=== PATIENT | male | born 1955 | race Caucasian/White ===

== ENCOUNTER 2019-07-01 13:49 | Inpatient (IN) | payer MEDICARE ==
[2019-07-01] MEDS ORDERED: Diltiazem 125 MG/25 ML ONE (14:00)
[2019-07-01 14:17] LABS: #Eosinphils 0.1 thou/uL (0.0-0.7); #Lymphocytes 2.3 thou/uL (1.20-3.40); #Monocytes 0.7 thou/uL (0.11-0.59); #Neutrophils 6.9 thou/uL (1.40-6.50); %Basophils 0.1 % (0.0-1.0); %Eosinophils 1.3 % (0.0-10.0); %Lymphocytes 23.1 % (21.0-51.0); %Monocytes 6.9 % (0.0-10.0); %Neutrophils 68.6 % (42.0-75.0); Mean Corpuscular HGB CONC 32.4 g/dL (32.0-36.0); Mean Corpuscular Hemoglobin 28.8 pg (27.0-31.0); Mean Platelet Volume 7.9 fL (7.4-10.4); Platelet Count 270 thou/uL (130-400); RBC Distribution Width 11.4 % (11.5-14.5); Red Blood Cell (RBC) Count 5.91 mill/uL (4.70-6.10)
--- NOTE | 2019-07-01 14:25 | RAD ---
Chest AP view INDICATION: Heart palpitations COMPARISON: None FINDINGS: Lungs:The lungs are clear Cardiac silhouette:The cardiomediastinal silhouette appears within normal limits. Pulmonary vasculature:Normal Pleural spaces:No pleural effusion or pneumothorax is demonstrated. Upper abdomen:No abnormality seen. Osseous structures: No acute osseous abnormality. Additional findings:None. IMPRESSION: No acute cardiopulmonary abnormality.
[2019-07-01 14:42] LABS: ALT (SGPT) 35 U/L (8-55); AST (SGOT) 22 U/L (5-34); Albumin 4.6 g/dL (3.4-4.8); Alkaline Phosphatase 54 U/L (40-110); Anion Gap 13 mmol/L (10-20); BUN (Urea Nitrogen) 14 mg/dL (8.4-25.7); Bilirubin, Total 0.7 mg/dL (0.2-1.2); Calc. Creatinine Clearance 0 mL/min (70-130); Calcium 9.6 mg/dL (7.8-10.44); Carbon Dioxide 26 mmol/L (23-31); Chloride 104 mmol/L (98-107); Estimated GFR-MDRD 51; Globulin 3.5 g/dL (2.4-3.5); Glucose 146 mg/dL (80-115); Potassium 3.5 mmol/L (3.5-5.1); Protein, Total 8.1 g/dL (5.8-8.1); Sodium 139 mmol/L (136-145)
[2019-07-01] MEDS ORDERED: Aspirin Chewable 81 MG TAB ONE (14:42)
[2019-07-01] MEDS ORDERED: Senokot S 8.6-50 MG TAB PO PRN (16:41)
[2019-07-01] MEDS ORDERED: Ondansetron PF 4 MG/2 ML Vial IVP PRN (16:41)
[2019-07-01] MEDS ORDERED: Acetaminophen 325 MG TAB PO PRN (16:41)
[2019-07-01] MEDS ORDERED: Guaifenesin DM 100-10/5 ML UDCUP PO PRN (16:41)
[2019-07-01] MEDS ORDERED: Bisacodyl 10 MG SUPP PR PRN (16:41)
[2019-07-01] MEDS ORDERED: Diltiazem 125 MG in Sodium Chloride 0.9% 100 ML IVPB SCH ×2 (16:45→19:15)
[2019-07-01 18:21] LABS: Troponin I Less than 0.010 ng/mL (< 0.028)
[2019-07-01 19:02] VITALS: BMI 27.4
--- NOTE | 2019-07-01 19:17 | HP ---
REASON FOR ADMISSION: Atrial flutter. HISTORY OF PRESENTING ILLNESS: The patient gives history of feeling dizzy when he tried to bend down at work. This happened twice. His primary care physician, Dr. Smith was close by to his workplace and went to see him. His heart rate was 140, later went up to 150 per minute. They did EKG and he was told to go to the ER due to arrhythmia. The patient has had a prior stress test more than 20 years ago as far as he knows it was negative. No history of prior atrial fibrillation or flutter. No history of bleeding per rectum. Prior colonoscopies have been normal with no signs of bleeding or cancer. PAST MEDICAL AND SURGICAL HISTORY: Hypertension, bilateral shoulder surgery, right knee surgery. CURRENT MEDICATIONS: 1. Aspirin 81 mg p.o. daily. 2. Benicar HCT 20/25 mg daily. 3. Norvasc 5 mg daily. ALLERGIES: NO KNOWN DRUG ALLERGIES. PERSONAL HISTORY: Does not abuse alcohol or drugs. No history of smoking. He ambulates by himself. The patient states he is very active in life. FAMILY HISTORY: Mother at the age of 89 years, she has had history of emphysema/COPD. Father at the age of 87, has had history of COPD as well. CODE STATUS: Full. Power of claims attorney is his . REVIEW OF SYSTEMS: CONSTITUTIONAL: Negative for weight loss or gain, ability to conduct usual activities. SKIN: Negative for rash, itching. EYES: Negative for double vision, pain. ENT/MOUTH: Negative for nose bleeding, neck stiffness, pain, tenderness. CARDIOVASCULAR: Negative for palpitations, dyspnea on exertion, orthopnea. RESPIRATORY: Negative for shortness of breath, wheezing, cough, hemoptysis, fever or night sweats. GASTROINTESTINAL: Negative for poor appetite, abdominal pain, heartburn, nausea , vomiting, constipation, or diarrhea. GENITOURINARY: Negative for urgency, frequency, dysuria, nocturia. MUSCULOSKELETAL: Negative for pain, swelling. NEUROLOGIC/PSYCHIATRIC: Negative for anxiety, depression. ALLERGY/IMMUNOLOGIC: Negative for skin rash, bleeding tendency. PHYSICAL EXAMINATION: GENERAL: The patient is a 63-year-old male, who is currently not in any acute distress. VITAL SIGNS: Blood pressure 118/96; pulse 151 beats per minute on arrival, currently around 104; respiratory rate 20 per minute; temperature 98 degrees Fahrenheit; saturating 100% on room air. NECK: Supple. No elevated JVD. HEENT: Eyes; extraocular muscles intact. Pupils reacting to light. Oral cavity, mucous membranes are moist. No exudates or congestion. CARDIOVASCULAR: S1 and S2 heard. Tachycardic. RESPIRATORY: Air entry 1+ bilateral. No rales or rhonchi. ABDOMEN: Soft. Bowel sounds heard. No tenderness, rigidity, or guarding. EXTREMITIES: No peripheral edema or calf tenderness. VASCULAR: Peripheral pulses 2+ bilateral. No ischemic ulcerations or gangrene. CENTRAL NERVOUS SYSTEM: No gross focal deficits noted. The patient is alert, awake, oriented well. PSYCHIATRIC: The patient's mood is euthymic. No hallucinations or delusions. LABORATORY DATA: White count of 10, hemoglobin and hematocrit 17 and 52, platelet count 270, MCV is 89 with 68% neutrophils. BUN 14, creatinine 1.4, serum bicarb 26, serum glucose 146. Troponin x2 negative. Liver enzymes are within normal limits. Albumin is 4.6. Chest x-ray done shows no acute cardiopulmonary abnormality. EKG done shows atrial flutter at 151 beats per minute with 2:1 block. CLINICAL IMPRESSION AND PLAN: The patient will be admitted to telemetry for atrial flutter with 2:1 block which is new onset. He was on 5 mg/hour of Cardizem drip and will continue the same. He will be on lovenox 80mg sc q12h and aspirin. Likely, the patient will need Electrophysiology consultation with Dr. Fausto Auguste. We will also place him on Lopressor at 50 mg twice daily, normal saline at 70 mL/hour for hypotension with cardiac medication. Small dose of Benicar 10 mg daily if her BP permits. Echo with 2D Doppler for LV function and to rule out thrombus. We will keep him n.p.o. after midnight for possible either cardioversion or ablation in the morning. We will continue to closely monitor him on telemetry. I have d/w Dr.Thomas Auguste, he will have ablation on Monday (he is out of town) Will keep npo after midnight in case he gets unstable for cardioversion if needed. May feed him in am if he is stable. Cardiology consultation with will be obtained as well. Will need a formal cardiac w/u including stress test once his flutter is stabilized. Job ID: [id number] [facility]
[2019-07-01] MEDS ORDERED: Enoxaparin Sodium 80 MG/0.8 ML SYRINGE SC SCH (19:45)
[2019-07-01] MEDS: Famotidine 20 MG TAB PO SCH (21:10)
[2019-07-01] MEDS: Sodium Chloride 0.9% 1,000 ML IV SCH (21:37)
[2019-07-01 21:48] LABS: Troponin I Less than 0.010 ng/mL (< 0.028)
[2019-07-02] MEDS: Metoprolol Tartrate 50 MG TAB PO SCH ×3 (00:15→21:30)
[2019-07-02 05:08] LABS: Hemoglobin A1c 6.4 % (4.0-6.0)
[2019-07-02 05:14] LABS: #Eosinphils 0.2 thou/uL (0.0-0.7); #Lymphocytes 2.6 thou/uL (1.20-3.40); #Monocytes 0.6 thou/uL (0.11-0.59); #Neutrophils 3.7 thou/uL (1.40-6.50); %Basophils 0.6 % (0.0-1.0); %Lymphocytes 36.1 % (21.0-51.0); %Monocytes 8.3 % (0.0-10.0); %Neutrophils 52.1 % (42.0-75.0); Hemoglobin 14.3 g/dL (14.0-18.0); Mean Corpuscular Hemoglobin 30.6 pg (27.0-31.0); Mean Corpuscular Volume 89.8 fL (78.0-98.0); Mean Platelet Volume 8.1 fL (7.4-10.4); Platelet Count 208 thou/uL (130-400); RBC Distribution Width 11.3 % (11.5-14.5); Red Blood Cell (RBC) Count 4.68 mill/uL (4.70-6.10); White Blood Cell (WBC) Count 7.2 thou/uL (4.8-10.8)
[2019-07-02 05:26] LABS: Anion Gap 8 mmol/L (10-20); BUN (Urea Nitrogen) 13 mg/dL (8.4-25.7); Calc. Creatinine Clearance 97 mL/min (70-130); Calcium 7.7 mg/dL (7.8-10.44); Carbon Dioxide 24 mmol/L (23-31); Chloride 110 mmol/L (98-107); Estimated GFR-MDRD 82; Glucose 117 mg/dL (80-115); Potassium 3.4 mmol/L (3.5-5.1); Sodium 139 mmol/L (136-145)
[2019-07-02 05:40] LABS: Thyroid Stimulating Hormone 1.6194 uIU/mL (0.35-4.94)
[2019-07-02 06:07] LABS: Free T4 (Free Thyroxine) 0.82 ng/dL (0.70-1.48)
[2019-07-02] MEDS ORDERED: Potassium Chloride 10 MEQ TAB PO SCH (08:15)
[2019-07-02] MEDS: Famotidine 20 MG TAB PO SCH ×2 (08:50→21:30)
[2019-07-02] MEDS ORDERED: Aspirin 325 mg Enteric Coated Tablet PO SCH (09:00)
[2019-07-02] MEDS ORDERED: Enoxaparin Sodium 40 MG/0.4 ML SYRINGE SC SCH (09:00)
[2019-07-02] MEDS: Losartan 25 MG TAB PO SCH (12:07)
[2019-07-02] MEDS: Enoxaparin Sodium 80 MG/0.8 ML SYRINGE SC SCH ×2 (12:07→21:30)
[2019-07-02] MEDS: Aspirin 81 mg Enteric Coated Tablet PO SCH (12:07)
[2019-07-02] MEDS: Sodium Chloride 0.9% 1,000 ML IV SCH ×2 (12:46→21:30)
--- NOTE | 2019-07-02 14:51 | CON ---
DATE OF CONSULTATION: 07/02/2019 REASON FOR CONSULTATION: Typical atrial flutter. HISTORY OF PRESENT ILLNESS: Mr. Awad is a pleasant 63-year-old white male with no prior cardiac history, admitted with typical atrial flutter. He has a several day history of palpitations, fatigue, and lightheadedness. He has had no syncope or stroke. He has no exertional chest discomfort. He was noted to be in typical atrial flutter and admitted. He was placed on intravenous diltiazem and spontaneously converted to sinus rhythm. An echocardiogram is pending. PAST MEDICAL HISTORY: Hypertension. PAST SURGICAL HISTORY: 1. Bilateral shoulder surgery. 2. Right knee surgery. ALLERGIES: NO KNOWN DRUG ALLERGIES. CURRENT MEDICATIONS: 1. Aspirin 81 mg daily. 2. Benicar HCT 20/25 daily. 3. Norvasc 5 mg daily. FAMILY HISTORY: Mother at 89 with a history of COPD. Father at 87 with history of COPD. SOCIAL HISTORY: He is . His is with him today. 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 He does not smoke and no alcohol. REVIEW OF SYSTEMS: No melena, bright red blood per rectum, hematemesis, orthopnea, edema, paroxysmal nocturnal dyspnea, chest discomfort, unilateral weakness or numbness, seizures or syncope. PHYSICAL EXAMINATION: GENERAL: Alert and oriented x4, no apparent distress. VITAL SIGNS: Afebrile, blood pressure 120/82, pulse 74, and respiratory rate 12. HEENT: No lesions. Sclerae are clear. SKIN: No lesions. CARDIOVASCULAR: Regular rate and rhythm. No murmurs, gallops, or rubs. LUNGS: Clear to auscultation bilaterally. Normal respiratory effort. EXTREMITIES: No cyanosis, clubbing, or edema. EKG, typical atrial flutter. LABORATORY DATA: WBC 7.2, hemoglobin of 14.3, hematocrit 42.1, and platelets 208. Sodium 139, potassium 3.4, BUN 13, creatinine 0.9, and glucose 117. Echocardiogram pending. IMPRESSION AND PLAN: Typical atrial flutter. He has spontaneously converted to sinus rhythm. RECOMMENDATIONS: 1. We have discussed the risks, benefits, alternatives of electrophysiology study and possible radiofrequency ablation including but not limited to myocardial infarction, stroke test, vascular damage, renal failure, cardiac tamponade, need for emergent surgery, and pacemaker. He is agreeable to proceed. We will plan to do tomorrow morning. 2. Discontinue aspirin. 3. Start Eliquis 5 mg b.i.d. after the procedure for one month. Job ID: [id number]
--- NOTE | 2019-07-02 16:35 | CON ---
DATE OF CONSULTATION: HISTORY OF PRESENT ILLNESS: The patient is a 63-year-old gentleman with no known previous cardiac history, who presented with palpitations and dizziness. The patient states several months ago he started noticing that he had episodes of dizziness. The patient yesterday started having palpitations along with being feeling markedly dizzy whenever he stood up. He went to his primary physician and was found to be in a rapid heart rate. He was admitted for further evaluation. The patient denied having any chest discomfort. The patient denies having any PND, orthopnea, or edema. PAST MEDICAL HISTORY: Hypertension. PAST SURGICAL HISTORY: Shoulder surgery and knee surgery. MEDICATIONS ON ADMISSION: 1. Benicar 20/25 daily. 2. Norvasc 5 daily. 3. Aspirin 81 daily. FAMILY HISTORY: Positive family history of coronary artery disease. Brother had a myocardial infarction. ALLERGIES: NO KNOWN DRUG ALLERGIES. REVIEW OF SYSTEMS: Ten-point system otherwise unremarkable. PHYSICAL EXAMINATION: GENERAL: A well-developed gentleman, in no acute distress. VITAL SIGNS: Blood pressure 122/78. NECK: No jugular vein distention. LUNGS: Clear to auscultation. HEART: Regular rate and rhythm. Normal S1 and S2. No murmurs. ABDOMEN: Nondistended. EXTREMITIES: No edema. VASCULAR: Radial pulses 2+. LABORATORY DATA: White blood cell count was 7.2, hemoglobin 14.3, hematocrit 42.1, platelets are 208. Sodium is 139, potassium 3.4, chloride 110, bicarb 24, BUN 13, creatinine 0.93, and glucose 117. Troponin less than 0.01. His EKG revealed typical atrial flutter with 2:1 conduction. IMPRESSION: 1. New onset atrial flutter. 2. Hypertension. This gentleman presents with new onset atrial flutter. I will check the patient 's echocardiogram. From a cardiac standpoint, he will undergo an ablation. EP has already been consulted. We will perform outpatient stress test following this hospitalization. Job ID: [id number] [facility]
--- NOTE | 2019-07-02 19:28 | PDOC.HOSPP ---
- Subjective Encounter Date: 07/02/19 Encounter Time: 19:22 Subjective: Patient seen and examined for A flutter. Off Cardizem drip. No CP. No new complaints. No overnight events - Objective Vital Signs & Weight: Vital Signs (12 hours) Temp Pulse Resp BP BP Pulse Ox 07/02/19 15:23 98.4 F 66 16 116/77 96 07/02/19 11:55 98.5 F 74 16 120/82 95 07/02/19 07:34 98.1 F 71 17 122/78 97 Weight Weight 191 lb 8 oz Result Diagrams: 07/02/19 04:14 07/02/19 04:14 EKG Reviewed by me: Yes (Tele SR) Hospitalist ROS - Review of Systems Respiratory: denies: cough, dry, shortness of breath, hemoptysis, SOB with excertion, pleuritic pain, sputum, wheezing, other Cardiovascular: denies: chest pain, palpitations, orthopnea, paroxysmal noc. dyspnea, edema, light headedness, other - Medication Medications: Active Medications Generic Name Dose Route Start Last Admin Trade Name Freq PRN Reason Stop Dose Admin Acetaminophen 650 mg 07/01/19 16:41 07/01/19 21:17 Tylenol PO 650 mg Q4H PRN Administration Headache/Fever/Mild Pain (1-3) Aspirin 81 mg 07/02/19 09:00 07/02/19 12:07 Ecotrin PO 81 mg DAILY TYSON Administration Enoxaparin Sodium 80 mg 07/02/19 09:00 07/02/19 12:07 Lovenox SC 80 mg Q12HR TYSON Administration Famotidine 20 mg 07/01/19 21:00 07/02/19 08:50 Pepcid PO 20 mg BID TYSON Administration Sodium Chloride 1,000 mls @ 70 mls/hr 07/01/19 16:45 07/02/19 12:46 Normal Saline 0.9% IV 07/03/19 03:00 1,000 mls .[id number] TYSON Administration Losartan Potassium 25 mg 07/02/19 09:00 07/02/19 12:07 Cozaar PO 25 mg DAILY TYSON Administration Metoprolol Tartrate 50 mg 07/01/19 21:00 07/02/19 12:06 Lopressor PO 50 mg BID TYSON Administration Sodium Chloride 10 ml 07/01/19 21:00 07/01/19 21:11 Flush - Normal Saline IVF 10 ml Q12HR TYSON Administration - Exam General Appearance: NAD Neck: supple, no JVD Heart: RRR, no gallops Respiratory: CTAB, no wheezes, no ronchi Gastrointestinal: soft, non-tender, normal bowel sounds Extremities: no edema Hosp A/P - Plan DVT proph w/SCDs Aflutter with RVR Hypokalemia HTN JOSE on CKD 2 PLAN: Off Cardizem drip Ablation in AM Replace electrolytes Cont Metoprolol Amlodipine dced AM labs
[2019-07-02] MEDS: Potassium Chloride 10 MEQ TAB PO SCH (19:33)
[2019-07-02] MEDS ORDERED: FLU VACC TS2019-20(65YR UP)/PF 180 MCG/0.5 ML SYRINGE IM ONE (21:00)
[2019-07-03] MEDS: Metoprolol Tartrate 50 MG TAB ONE ×2 (06:00→12:56)
[2019-07-03] MEDS ORDERED: Heparin (Artline) 500 ML ONE (09:52)
[2019-07-03] MEDS ORDERED: PROPOFOL 200 MG/20 ML VIAL ONE (10:05)
[2019-07-03] MEDS ORDERED: PHENYLEPHRINE-NS 100 MCG/ML 10 ML SYRINGE ONE (10:05)
[2019-07-03] MEDS ORDERED: Fentanyl 100 MCG/2 ML VIAL ONE (10:29)
[2019-07-03] MEDS ORDERED: Midazolam HCl 2 mg/2 ml Vial ONE (10:29)
--- NOTE | 2019-07-03 12:24 | OP ---
DATE OF PROCEDURE: 07/03/2019 PREOPERATIVE DIAGNOSIS: Typical atrial flutter. POSTOPERATIVE DIAGNOSES: 1. Typical atrial flutter. 2. Nonsustained atrial tachycardia. PROCEDURE PERFORMED: 1. Radiofrequency ablation of cavotricuspid isthmus, 27881. 2. Left atrial pacing recording, 51506. DYE EXPERT: Fausto Auguste MD. METAL CHECKER: None. SPECIMENS: None. ANESTHESIA: Monitored anesthesia care. ANESTHESIOLOGIST: Dr. Dennis. COMPLICATIONS: None. ESTIMATED BLOOD LOSS: 10 mL. INDICATIONS FOR PROCEDURE: The patient had typical right atrial flutter on EKG upon admission, which spontaneously converted to sinus rhythm. The risks, benefits, and alternatives of radiofrequency ablation including, but not limited to, myocardial infarction, stroke, , vascular damage, renal failure, allergic reaction, arrhythmias, need for emergent surgery, cardiac tamponade were discussed prior to the procedure. The patient was brought electively to the electrophysiology suite. DESCRIPTION OF PROCEDURE: The patient had repetitive nonsustained atrial tachycardia on arrival to the electrophysiology suite. Sedation was performed by Anesthesia. Bilateral femoral groins were prepped and draped in a sterile fashion. Lidocaine was infiltrated in the bilateral femoral groins. Access was obtained in the femoral veins with ultrasound guidance with two 6-Venezuelan sheaths in the left femoral vein and a ramp sheath in the right femoral vein. Catheters were advanced under fluoroscopic guidance. A decapolar catheter was placed in the coronary sinus. Left atrial pacing recording was performed. The decapolar catheter was placed in the lateral right atrium. An 8-mm nonirrigated catheter was used for the ablation. While pacing the proximal chordee sinus, radiofrequency energy was applied to the cavotricuspid isthmus. Medial to lateral block occurred during the ablation. Medial to lateral and lateral to medial blocks were confirmed with pacing maneuvers and persisted 20 minutes after the last RF application. RF time 2 minutes and 12 seconds. Postablation intervals are CO interval 121, QRS 73, QT 301, AV wenckebach 320 milliseconds. Sheaths were pulled during the case. Hemostasis was achieved with manual hemostasis. The patient tolerated procedure well and was transferred to recovery area in good condition. CONCLUSIONS: 1. Typical right atrial flutter. 2. Successful cavotricuspid isthmus ablation. PLAN: 1. Discontinue aspirin while taking Eliquis. 2. Eliquis 5 mg b.i.d. for 1 month and then resume aspirin daily. 3. If he continues to have nonsustained atrial tachycardia, consider adding beta-daquan or cardiac monitoring at his followup visit. 4. Okay to discharge today. He will follow up with [facility], , in 2 weeks. We will arrange followup. Job ID: [id number]
[2019-07-03] MEDS: Enoxaparin Sodium 80 MG/0.8 ML SYRINGE SC SCH (15:11)
[2019-07-03] MEDS: Potassium Chloride 10 MEQ TAB PO SCH ×2 (15:11→17:25)
--- NOTE | 2019-07-03 15:34 | DIS ---
DATE OF ADMISSION: 07/01/2019 DATE OF DISCHARGE: 07/03/2019 DISCHARGE DISPOSITION: Home. FOLLOWUP: 1. Follow up with primary care physician, Dr. Smith in 1 week. 2. Follow up with Dr. Fausto Auguste in 1 to 2 weeks. DISCHARGE MEDICATIONS: 1. Metoprolol 50 mg b.i.d. 2. Eliquis 5 mg b.i.d. 3. Olmesartan/hydrochlorothiazide 20/12.5 daily. 4. Nexium 20 mg daily. 5. Zyrtec 10 mg daily. INPATIENT CONSULT: Electrophysiology, Dr. Fausto Auguste. Repeat basic metabolic profile later this week is recommended. Primary care physician advised to follow. INPATIENT PROCEDURES: On July 03, 2019, the patient underwent radiofrequency ablation of the cavotricuspid isthmus for typical atrial flutter. BRIEF HOSPITAL COURSE: The patient is a 63-year-old male with hypertension, presented to the hospital with dizziness along with palpitations. His heart rate in the emergency room was 151. His rhythm was consistent with atrial flutter, 2:1 block. He was started on Cardizem drip. He was started on anticoagulation as well. His echocardiogram showed left ventricular ejection fraction 55% to 60% with mild mitral regurgitation, mild tricuspid regurgitation, and mild aortic regurgitation. He converted to sinus rhythm. He underwent ablation for atrial flutter earlier today by Dr. Auguste. Dr. Auguste has cleared the patient for discharge. He has been started on Eliquis. He was advised to hold aspirin while on Eliquis. Amlodipine has been discontinued instead he has been started on beta blockers. He was advised to follow up with Dr. Auguste in 2 weeks. FINAL DIAGNOSES: 1. Atrial flutter with rapid ventricular response, spontaneously converted to sinus rhythm. 2. Status post radiofrequency ablation for atrial flutter this admission. 3. Hypertension. 4. Hypokalemia, replaced. 5. Chronic kidney disease, stage 2. 6. Impaired glucose tolerance. His hemoglobin A1c is 6.4. 7. Acute kidney injury, resolved. 8. Mild aortic regurgitation. 9. Mild mitral regurgitation. 10. Mild tricuspid regurgitation. PLAN: Plan was discussed with the patient in detail. He stated understanding. Risk associated with anticoagulation discussed with the patient and the family. They stated understanding. Job ID: [id number]
[2019-07-03 16:31] VITALS: BP 148/86; TEMP 97.6
[2019-07-03 17:21] LABS: Anion Gap 8 mmol/L (10-20); BUN (Urea Nitrogen) 11 mg/dL (8.4-25.7); Calc. Creatinine Clearance 90 mL/min (70-130); Calcium 8.7 mg/dL (7.8-10.44); Carbon Dioxide 26 mmol/L (23-31); Chloride 110 mmol/L (98-107); Estimated GFR-MDRD 74; Glucose 104 mg/dL (80-115); Potassium 3.9 mmol/L (3.5-5.1); Sodium 140 mmol/L (136-145)
[2019-07-03] MEDS: Aspirin 81 mg Enteric Coated Tablet PO SCH (17:23)
[2019-07-03] MEDS: Metoprolol Tartrate 50 MG TAB PO SCH (17:24)
[2019-07-03] MEDS: Losartan 25 MG TAB PO SCH (17:26)
[2019-07-03] MEDS: Famotidine 20 MG TAB PO SCH (17:26)
--- NOTE | 2019-07-04 21:33 | EKG ---
Test Reason : POST ABLATION Blood Pressure : / mmHG Vent. Rate : 059 BPM Atrial Rate : 059 BPM P-R Int : 180 ms QRS Dur : 086 ms QT Int : 414 ms P-R-T Axes : 015 006 000 degrees QTc Int : 409 ms Sinus bradycardia Otherwise normal ECG When compared with ECG of 01-JUL-2019 13:53, (Unconfirmed) Sinus rhythm has replaced Atrial flutter Vent. rate has decreased BY [address] no longer depressed in Inferior leads ST no longer depressed in Lateral leads Nonspecific T wave abnormality no longer evident in Lateral leads Confirmed by Juana RHOADES ([id number]) on 07/04/2019 9:32:54 PM Referred By: MARANDA Confirmed By:Juana RHOADES
== END 2019-07-03 17:45 | disposition home or self-care (01) | DRG 274 ==
LOC: ERS 13:49 → ERHOLD 15:15 → 2NO 19:10
PROVIDERS: ADMIT Internal Medicine Cardiovascular Disease; ATTEND Internal Medicine Cardiovascular Disease
PROC: 02583ZZ Destruction of Conduction Mechanism, Percutaneous Approach (ICD-10-PCS; principal; 2019-07-03)
PROC: 4A023FZ Measurement of Cardiac Rhythm, Percutaneous Approach (ICD-10-PCS; 2019-07-03)
PROC: 4A0234Z Measurement of Cardiac Electrical Activity, Percutaneous Approach (ICD-10-PCS; 2019-07-03)
DX: I48.3 Typical atrial flutter (principal); N17.9 Acute kidney failure, unspecified; I10 Essential (primary) hypertension; Z98.890 Other specified postprocedural states; Z79.82 Long term (current) use of aspirin; Z79.899 Other long term (current) drug therapy; E87.6 Hypokalemia; N18.2 Chronic kidney disease, stage 2 (mild); I12.9 Hypertensive chronic kidney disease with stage 1 through stage 4 chronic kidney disease, or unspecified chronic kidney disease; I35.1 Nonrheumatic aortic (valve) insufficiency; I34.0 Nonrheumatic mitral (valve) insufficiency; I07.1 Rheumatic tricuspid insufficiency; E78.5 Hyperlipidemia, unspecified; I95.9 Hypotension, unspecified; I47.1 Supraventricular tachycardia
CPT/HCPCS: 36415; 71045; 76942; 80048; 80053; 83036; 83735; 84439; 84443; 84481; 84484; 85025; 93005; 93010; 93306; 93609; 93621; 93653; 94760; C1730; C1731; C1769; C2630; J1644; J1650; J2250; J2704; J3010

== ENCOUNTER 2020-06-07 13:22 | Emergency (ER) | payer MEDICARE, OTHER ==
[~2020-06-07 13:22] MED LIST: Iopamidol-370 76% 500 ML 1 ML ONE
[2020-06-07] MEDS ORDERED: Aspirin Chewable 81 MG TAB ONE (13:47)
[2020-06-07 14:01] LABS: #Eosinphils 0.1 thou/uL (0.0-0.7); #Lymphocytes 0.9 thou/uL (1.20-3.40); #Monocytes 0.4 thou/uL (0.11-0.59); #Neutrophils 5.4 thou/uL (1.40-6.50); %Basophils 0.3 % (0.0-1.0); %Eosinophils 1.6 % (0.0-10.0); %Lymphocytes 13.2 % (21.0-51.0); %Monocytes 5.9 % (0.0-10.0); Hemoglobin 17.1 g/dL (14.0-18.0); Mean Corpuscular HGB CONC 35.7 g/dL (32.0-36.0); Mean Corpuscular Hemoglobin 32.4 pg (27.0-31.0); Mean Corpuscular Volume 90.7 fL (78.0-98.0); Mean Platelet Volume 8.1 fL (7.4-10.4); Platelet Count 198 thou/uL (130-400); RBC Distribution Width 11.4 % (11.5-14.5); Red Blood Cell (RBC) Count 5.28 mill/uL (4.70-6.10); White Blood Cell (WBC) Count 6.9 thou/uL (4.8-10.8)
[2020-06-07 14:20] LABS: ALT (SGPT) 24 U/L (8-55); AST (SGOT) 15 U/L (5-34); Alkaline Phosphatase 43 U/L (40-110); Anion Gap 12 mmol/L (10-20); BUN (Urea Nitrogen) 18 mg/dL (8.4-25.7); Bilirubin, Total 0.6 mg/dL (0.2-1.2); Calc. Creatinine Clearance 0 mL/min (70-130); Calcium 9.1 mg/dL (7.8-10.44); Carbon Dioxide 27 mmol/L (23-31); Chloride 102 mmol/L (98-107); Estimated GFR-MDRD 56; Globulin 3.3 g/dL (2.4-3.5); Glucose 137 mg/dL (80-115); Lipase 30 U/L (8-78); Potassium 4.2 mmol/L (3.5-5.1); Protein, Total 7.3 g/dL (5.8-8.1); Sodium 137 mmol/L (136-145)
[2020-06-07] MEDS ORDERED: Lorazepam 2 MG/ML VIAL ONE (14:36)
--- NOTE | 2020-06-07 14:41 | RAD ---
RADIOGRAPH CHEST 1 VIEW: DATE: 06/07/2020 HISTORY: 64-year-old male with hypertension and atrial fibrillation FINDINGS: There are no airspace densities, pulmonary edema, pneumothorax, or cardiomegaly. The lateral costophr enic angles are sharp. IMPRESSION: No acute cardiopulmonary findings.
--- NOTE | 2020-06-07 15:00 | CT ---
CT ABDOMEN WITH CONTRAST CT PELVIS WITH CONTRAST: DATE: 06/07/2020 HISTORY: 64-year-old male with sudden onset epigastric pain with nausea COMPARISON: None TECHNIQUE: IV injection of iodinated contrast media: administered. Oral contrast media:Not administered FINDINGS: Diffusely low hepatic attenuation consistent with fatty liver. Lung bases are grossly clear. No pleural effusion. No pneumoperitoneum, small bowel dilation, colonic diverticulitis, or ascites. Normal appendix and urinary bladder. Fat-containing bilateral inguinal hernias with no bowel loop involved. Atherosclerosis with calcified and noncalcified plaque, of moderate degree involving abdominal aorta and bilateral iliac arteries. Unremarkable pancreas, adrenals, and spleen. Several bilateral renal cysts, on the order of 1.5 cm each. An 8 x 8 x 7 mm calculus at a right renal midpole calyx. Similar sized calculus at left renal midpole calyx. 5 mm calculus at left renal lower pole. Additional punctate tiny bilateral renal calculi. No hydronephrosis. IMPRESSION: 1) no acute findings. 2) hepatic steatosis. 3) atherosclerosis of abdominal aorta and iliac arteries. 4) nephrolithiasis consisting several bilateral renal calculi.
== END 2020-06-07 15:51 | disposition home or self-care (01) ==
LOC: ERS 13:22
DX: R10.13 Epigastric pain (principal); R11.0 Nausea; I10 Essential (primary) hypertension; E78.00 Pure hypercholesterolemia, unspecified; I48.91 Unspecified atrial fibrillation; F41.9 Anxiety disorder, unspecified; I25.10 Atherosclerotic heart disease of native coronary artery without angina pectoris; E78.5 Hyperlipidemia, unspecified; Z79.899 Other long term (current) drug therapy
CPT/HCPCS: 36415; 71045; 74177; 80053; 83690; 84484; 85025; 93005; 96374; J2060; Q9967

== ENCOUNTER 2020-08-17 07:10 | Outpatient (CLI) | payer MEDICARE ==
[2020-08-17 12:06] LABS: Hemoglobin 16.8 g/dL (14.0-18.0); Mean Corpuscular HGB CONC 33.6 G/DL (32.0-36.0); Mean Corpuscular Volume 89.3 fl (80.0-100.0); Mean Platelet Volume 10.7 fl (7.4-10.4); Platelet Count 195 10x3/uL (130-400); RBC Distribution Width 12.1 % (11.5-14.5); White Blood Cell (WBC) Count 7.2 10x3/uL (4.5-11.0)
[2020-08-17 12:20] LABS: INR-International Normal Ratio 1.1; Prothrombin Time 11.3 sec (9.5-12.1)
[2020-08-17 12:25] LABS: Anion Gap 14 mmol/L (10-20); BUN (Urea Nitrogen) 15 mg/dL (8.4-25.7); Calc. Creatinine Clearance 0 mL/min (70-130); Calcium 9.5 mg/dL (7.8-10.44); Carbon Dioxide 27 mmol/L (23-31); Chloride 105 mmol/L (98-107); Glucose 107 mg/dL (80-115); Potassium 4.4 mmol/L (3.5-5.1); Sodium 142 mmol/L (136-145)
[2020-08-17 18:29] LABS: SARS-CoV-2 PCR by NAA Not Detected (NotDetected)
== END 2020-08-17 07:11 | disposition home or self-care (01) ==
LOC: LABBT 07:10
PROVIDERS: ATTEND Internal Medicine Cardiovascular Disease
DX: Z01.812 Encounter for preprocedural laboratory examination (principal); Z20.822 Contact with and (suspected) exposure to COVID-19
CPT/HCPCS: 80048; 85027; 85610; U0003; U0005; 87635

== ENCOUNTER 2020-08-20 06:03 | Day surgery (SDC) | payer MEDICARE ==
[2020-08-17 11:59] VITALS: BMI 26.5
[2020-08-20] MEDS ORDERED: Fentanyl 100 MCG/2 ML VIAL ONE (06:25)
[2020-08-20] MEDS ORDERED: Heparin 10,000 UNITS/ 10 ML VIAL ONE (06:44)
[2020-08-20] MEDS ORDERED: Midazolam HCl 2 mg/2 ml Vial ONE (07:00)
[2020-08-20] MEDS ORDERED: Propofol 500 MG/50 ML VIAL ONE (08:12)
[2020-08-20] MEDS ORDERED: Isoproterenol 0.2 MG/1 ML AMP ONE (08:12)
[2020-08-20] MEDS ORDERED: PROPOFOL 200 MG/20 ML VIAL ONE (09:17)
[2020-08-20] MEDS ORDERED: Ondansetron PF 4 MG/2 ML Vial ONE (09:17)
--- NOTE | 2020-08-20 10:02 | OP ---
DATE OF PROCEDURE: 08/20/2020 PRIMARY CARE PHYSICIAN: Shubham Smith MD REFERRING WIRE ROPE FABRICATION SUPERVISOR: Boris Moffett MD PREOPERATIVE DIAGNOSES: 1. Nonsustained atrial tachycardia. 2. Supraventricular tachycardia. POSTOPERATIVE DIAGNOSES: 1. Normal conduction intervals. 2. Evidence of atrioventricular job slow pathway without echo beats. 3. No inducible arrhythmias. PROCEDURES PERFORMED: 1. Comprehensive electrophysiology study with induction of arrhythmia. 2. Left atrial pacing and recording. 3. Programed stimulation after isoproterenol infusion. SYSTEM OPERATION SUPERINTENDENT: None. ANESTHESIA: Sedation. SPECIMENS: None. ESTIMATED BLOOD LOSS: 10 mL. COMPLICATIONS: None. DESCRIPTION OF PROCEDURE: The risks, benefits, and alternatives of electrophysiology study and radiofrequency ablation including, but not limited to, myocardial infarction, stroke, , vascular damage, deep vein thrombosis, heart block with need for pacemaker, need for emergent surgery due to damage of cardiac structures or pericardial effusion, and allergic reaction were discussed prior to the case. The patient voiced understanding and was agreeable to proceed. The patient was brought electively to the electrophysiology lab. Sedation was performed by Anesthesia. Bilateral femoral areas were prepped and draped in sterile fashion. Lidocaine was infiltrated in the bilateral femoral areas. Using ultrasound guidance, a 5-Guatemalan and 7-Guatemalan sheaths were placed in the left femoral vein and two 5-Guatemalan sheaths were placed in the right femoral vein. Catheters were advanced under 3D guidance. Catheter was placed in the coronary sinus, right ventricular apex, His position, and high right atrium. Left atrial pacing and recording were performed. Baseline intervals: Sinus cycle length 1012 milliseconds, [place] equal 187 milliseconds, QRS equal 108 milliseconds, QT equal 446 milliseconds, AH equal 95 milliseconds, and HV equal 41 milliseconds. When pacing the right ventricular apex at 600 milliseconds, there was no VA conduction. There was no evidence of pre-excitation when pacing the distal coronary sinus. When pacing the high right atrium, AV block occurred at 350 milliseconds. Single and double PACs were delivered from the high right atrium and proximal coronary sinus. Right atrial ERP equal 600/220. AV node ERP less than 600/220. There was evidence of slow pathway conduction with no clear jump with double PACs. There were no echo beats. With single PACs and double PACs, there was nonsustained atrial tachycardia and nonsustained atrial fibrillation of several beats in duration. There were no consistently reproducible arrhythmias. Burst pacing was performed from the coronary sinus. Isoproterenol was given to maximum of 10 mcg/minute intravenously. Programed stimulation was then performed after isoproterenol infusion. This included double PACs and burst pacing. No inducible arrhythmias were present. Sheaths were pulled in the lab and hemostasis was achieved. The patient tolerated the procedure well and was transferred to the recovery area in good condition. CONCLUSIONS: 1. Nonsustained atrial tachycardia. 2. No inducible arrhythmias. 3. Evidence of slow pathway conduction without echo beat. PLAN: 1. Discontinue metoprolol. 2. Start diltiazem CD 120 mg daily. 3. Follow up with [facility] on 09/10/2020 at 1:30 p.m. 4. No lifting more than 10 pounds for 5 days. Job ID: [id number]
[2020-08-20] MEDS ORDERED: Acetaminophen/Codeine 30-300mg Tablet ONE (11:27)
[2020-08-20] MEDS ORDERED: Acetaminophen/Codeine 30-300mg Tablet PO PRN ×2 (12:00)
== END 2020-08-21 13:40 | disposition home or self-care (01) ==
LOC: SDC/OP 06:03 → EDSTATUS 11:15 → UNDODISIN 13:40 → SDC/OP 08-21 13:40
PROVIDERS: ATTEND Internal Medicine Cardiovascular Disease
PROC: 4A023FZ Measurement of Cardiac Rhythm, Percutaneous Approach (ICD-10-PCS; principal; 2020-08-20)
PROC: 4A0234Z Measurement of Cardiac Electrical Activity, Percutaneous Approach (ICD-10-PCS; 2020-08-20)
DX: I47.1 Supraventricular tachycardia (principal); Z79.82 Long term (current) use of aspirin; Z79.899 Other long term (current) drug therapy; Z20.822 Contact with and (suspected) exposure to COVID-19
CPT/HCPCS: 76942; 80048; 85027; 85610; 93613; 93621; 93623; U0003; U0005; 87635; 93653; C1730; J1644; J2250; J2405; J2704; J3010

== ENCOUNTER 2021-07-12 11:44 | Outpatient (CLI) | payer MEDICARE ==
[2021-07-12 15:24] LABS: #Basophils 0.1 10x3/uL (0.0-0.2); #Eosinphils 0.2 10x3/uL (0.0-0.5); #Monocytes 0.7 10x3/uL (0.0-1.1); #Neutrophils 6.2 10x3/uL (1.5-8.4); %Basophils 0.7 % (0.0-2.0); %Eosinophils 1.9 % (0.0-6.0); %Lymphocytes 18.9 % (18.0-47.0); %Monocytes 8.1 % (0.0-10.0); %Neutrophils 70.1 % (40.0-75.0); Mean Corpuscular HGB CONC 33.2 g/dL (32.0-36.0); Mean Corpuscular Hemoglobin 30.2 pg (27.0-33.0); Mean Corpuscular Volume 90.9 fl (81.2-95.1); Mean Platelet Volume 10.6 fl (7.4-10.4); Platelet Count 246 10x3/uL (150-450); RBC Distribution Width 11.9 % (11.5-14.5); White Blood Cell (WBC) Count 8.9 10x3/uL (3.5-10.5)
[2021-07-12 15:53] LABS: Anion Gap 13 mmol/L (10-20); BUN (Urea Nitrogen) 21 mg/dL (8.4-25.7); Calc. Creatinine Clearance 0 mL/min (70-130); Calcium 9.7 mg/dL (7.8-10.44); Carbon Dioxide 27 mmol/L (23-31); Chloride 107 mmol/L (98-107); Glucose 71 mg/dL (80-115); Potassium 4.7 mmol/L (3.5-5.1); Sodium 142 mmol/L (136-145)
[2021-07-13 00:18] LABS: SARS-CoV-2 PCR by NAA Not Detected (NotDetected)
== END 2021-07-12 11:45 | disposition home or self-care (01) ==
LOC: LABBT 11:44
PROVIDERS: ATTEND Specialist
DX: Z01.818 Encounter for other preprocedural examination (principal); K80.20 Calculus of gallbladder without cholecystitis without obstruction; Z20.822 Contact with and (suspected) exposure to COVID-19
CPT/HCPCS: 80048; 85025; 93005; U0003; U0005; 93010

== ENCOUNTER 2021-07-15 06:58 | Day surgery (SDC) | payer MEDICARE ==
[2021-07-14 11:28] VITALS: BMI 25.5
[2021-07-15] MEDS ORDERED: Acetaminophen 500 MG TAB ONE (07:36)
[2021-07-15] MEDS ORDERED: Ketorolac Tromethamine 30 MG/ML VIAL ONE (07:36)
[2021-07-15] MEDS ORDERED: ceFAZolin 2 GM/DEX 5% 100 ML BAG ONE (07:53)
[2021-07-15] MEDS ORDERED: Lidocaine 1% w/Epinephrine 1:100K 20 ML VIAL ONE (08:47)
[2021-07-15] MEDS ORDERED: Bupivacaine 0.25% 10 ML VIAL ONE (08:47)
[2021-07-15] MEDS ORDERED: Dexmedetomidine 200 MCG/2 ML VIAL ONE (09:01)
[2021-07-15] MEDS ORDERED: Fentanyl 100 MCG/2 ML VIAL ONE ×2 (09:01→11:10)
[2021-07-15] MEDS ORDERED: PROPOFOL 200 MG/20 ML VIAL ONE (09:05)
[2021-07-15] MEDS ORDERED: Succinylcholine 200 MG/10 ml SYRINGE FS ONE (09:05)
[2021-07-15] MEDS ORDERED: Phenylephrine 10 MG/ML VIAL ONE ×2 (09:05→10:17)
[2021-07-15] MEDS ORDERED: Glycopyrrolate 0.2 MG/ML 5 ML SYRINGE ONE (09:05)
[2021-07-15] MEDS ORDERED: Lidocaine 1% PF 5 ML VIAL ONE (09:05)
[2021-07-15] MEDS ORDERED: Rocuronium Bromide 10 MG/ML (10ML VIAL) ONE (09:05)
[2021-07-15] MEDS ORDERED: ePHEDrine 50 MG/ML VIAL ONE (09:05)
[2021-07-15] MEDS ORDERED: Ondansetron PF 4 MG/2 ML Vial ONE (09:05)
[2021-07-15] MEDS ORDERED: ePHEDrine Sulfate 50 MG/10 ML VIAL ONE (10:17)
== END 2021-07-15 12:55 | disposition home or self-care (01) ==
LOC: SDC 06:58
PROVIDERS: ATTEND Specialist
PROC: 0FT44ZZ Resection of Gallbladder, Percutaneous Endoscopic Approach (ICD-10-PCS; principal; 2021-07-15)
DX: K80.10 Calculus of gallbladder with chronic cholecystitis without obstruction (principal); K42.9 Umbilical hernia without obstruction or gangrene; I11.9 Hypertensive heart disease without heart failure; Z79.82 Long term (current) use of aspirin; Z79.899 Other long term (current) drug therapy
CPT/HCPCS: 88304; C1713; J1885; J2370; J2405; J2704; J3010; J3490; S0020

== ENCOUNTER 2024-05-21 06:53 | Day surgery (SDC) | payer MEDICARE ==
[2024-05-20 11:45] VITALS: BMI 25.7
[2024-05-21] MEDS ORDERED: Lidocaine 1% w/Epinephrine 1:100K 20 ML VIAL ONE (07:42)
== END 2024-05-21 09:16 | disposition home or self-care (01) ==
LOC: SDC 06:53
PROVIDERS: ATTEND Internal Medicine Cardiovascular Disease
PROC: 0JH602Z Insertion of Monitoring Device into Chest Subcutaneous Tissue and Fascia, Open Approach (ICD-10-PCS; principal; 2024-05-21)
PROC: 0JPT02Z Removal of Monitoring Device from Trunk Subcutaneous Tissue and Fascia, Open Approach (ICD-10-PCS; 2024-05-21)
DX: R55 Syncope and collapse (principal); I48.3 Typical atrial flutter; I10 Essential (primary) hypertension; I25.10 Atherosclerotic heart disease of native coronary artery without angina pectoris; E11.9 Type 2 diabetes mellitus without complications; E78.5 Hyperlipidemia, unspecified; K21.9 Gastro-esophageal reflux disease without esophagitis; F32.9 Major depressive disorder, single episode, unspecified; Z90.89 Acquired absence of other organs; Z90.49 Acquired absence of other specified parts of digestive tract; Z96.659 Presence of unspecified artificial knee joint; Z98.890 Other specified postprocedural states; Z88.5 Allergy status to narcotic agent; Z79.82 Long term (current) use of aspirin; Z79.899 Other long term (current) drug therapy
CPT/HCPCS: 33285; 33286; C1764